=== PATIENT | male | born 1950 | race Caucasian/White ===

== ENCOUNTER → 2023-12-07 13:37 | Outpatient (REF) | payer OTHER, SELFPAY | LOC: RCS 13:37 | PROVIDERS: ATTENDING PHYSICIAN Internal Medicine Cardiovascular Disease; FAMILY PHYSICIAN Family Medicine | DX: I10 Essential (primary) hypertension (principal) | CPT/HCPCS: 93306 ==

== ENCOUNTER 2024-01-30 15:25 | Emergency (ER) | payer OTHER, SELFPAY ==
[2024-01-30 15:26] VITALS: BP 132/86
--- NOTE | 2024-01-30 15:46 | ED.GENMED ---
History of Present Illness
<Radha Yi PA-C - Last Filed: 01/30/24 18:20>
General
Chief Complaint: Skin Surface Trauma
Source: patient
Exam Limitations: none
Time Seen by Provider: 01/30/24 15:42
Nursing documentation reviewed up to this point in time: agreed with
History of Present Illness
History of Present Illness:
This is a 73 y/o male with a PMH of hyperlipidemia presenting to the emergency department today with concerns of a crush injury to the finger. Patient states that he was folding up a small stepstool ladder when he caught his finger in between the
folds. Patient reports that he had pain and noticed his fingernail hanging off. Patient denies any other injuries, patient denies any other falls. Patient denies any other problems and is fingers or hands. Patient has seen Dr. Avelar in the past
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 Patient does not take any blood thinners. Patient does have an allergy to penicillins in which she gets difficulty breathing. Patient is not up-to-date on his tetanus vaccine.
Past History
<Radha Yi PA-C - Last Filed: 01/30/24 18:20>
Past History
ED Past Medical History: Other (kidney stones)
ED Past Surgical History: Urological (lithotripsy)
Social History
Tobacco: Non-smoker
Alcohol: Occasional
Drug: None
Personal:
Living: with family
Employment: Employed
Review of Systems
<ABHIJEET Hwang Last Filed: 01/30/24 18:20>
Review of Systems
All Other Systems: ROS reviewed and negative except as documented in HPI and ROS
Phy Exam
<Radha Yi PA-C - Last Filed: 01/30/24 18:20>
Physical Exam
Physical Exam:
General: Patient is well appearing and in no acute distress; non-toxic
Skin: Warm and dry, there is a total avulsion of the left thumbnail with a jagged nail bed laceration, actively bleeding.
Head: Normocephalic, atraumatic
Eyes: Sclera non-icteric. EOMs intact.
Cardiac: Regular rate
Pulm: Normal respiratory effort
Musculoskeletal: Full range of motion bilateral upper extremities. 5/5 strength in bilateral upper extremities. Tenderness to palpation of the first left distal phalanx, no proximal bony tenderness.
Neuro: CN II-XII intact, no focal neurologic deficits.
Psychiatric: Appropriate mood and affect.
Course
<Radha Yi PA-C - Last Filed: 01/30/24 18:20>
Orders/Labs/Results
Orders:
Orders
01/30/24 16:28
Tetanus/Diphth/Acelpertussis [Adacel] 0.5 ml IM .ONCE ONE
01/30/24 16:34
CR Finger(s)/thumb Min 2 Vw Lt Urgent
Comment:
Reason For Exam: left thumb crush injury + pain
Vital Signs
Initial and Last Documented VS:
Initial Vital Signs
Temp Pulse Resp BP Pulse Ox
98.0 F 85 18 132/86 97
01/30/24 15:26 01/30/24 15:26 01/30/24 15:26 01/30/24 15:26 01/30/24 15:26
Last Documented Vital Signs
Temp Pulse Resp BP Pulse Ox
98.0 F 70 20 153/93 97
01/30/24 15:26 01/30/24 17:01 01/30/24 17:01 01/30/24 17:01 01/30/24 15:26
<Sergio Johnson MD - Last Filed: 01/30/24 16:44>
Orders/Labs/Results
Orders:
Orders
01/30/24 16:28
Tetanus/Diphth/Acelpertussis [Adacel] 0.5 ml IM .ONCE ONE
01/30/24 16:34
CR Finger(s)/thumb Min 2 Vw Lt Urgent
Comment:
Reason For Exam: left thumb crush injury + pain
Vital Signs
Initial and Last Documented VS:
Initial Vital Signs
Temp Pulse Resp BP Pulse Ox
98.0 F 85 18 132/86 97
01/30/24 15:26 01/30/24 15:26 01/30/24 15:26 01/30/24 15:26 01/30/24 15:26
Last Documented Vital Signs
Temp Pulse Resp BP Pulse Ox
98.0 F 70 20 153/93 97
01/30/24 15:26 01/30/24 17:01 01/30/24 17:01 01/30/24 17:01 01/30/24 15:26
Procedures
<Radha Yi PA-C - Last Filed: 01/30/24 18:20>
Laceration Closure
Left nail bed:
Status of Wound: clean
Size of Wound in cm: 1
Description of Wound Edges: ragged
Preparation: cleaned with saline
Anesthesia: 1% Lidocaine
Revision/Debridement: minor revision
Wound exploration: explored to base- no FB and no tendon involvement
Type of Closure: single layer closure
Skin Closure Material: 5-0 chromic gut
Number of sutures: 3
<Radha Yi PA-C - Last Filed: 01/30/24 18:20>
MDM/Problems Addressed
Differential Diagnosis Includes:
ddx include laceration, abrasion, avulsion, distal phalanx fracture
MDM/Problems Addressed:
Left thumb crush injury:
This is a 73 y/o male with a PMH of hyperlipidemia presenting to the emergency department today with concerns of a crush injury to the finger. Patient injured a total fingernail avulsion of the left thumb with a nailbed laceration. X-ray reveals
distal phalanx fracture. Patient is neurovascularly intact. Considering open fracture, will start patient on antibiotics. Patient has follow-up with Dr. Avelar in the past, will have him call tomorrow morning to schedule an appointment. Finger
splint placed. Patient stable for discharge.
Chronic conditions affecting care:
n/a
Acute Exacerbation and/or Progression of Chronic Illness:
n/a
<Radha Yi PA-C - Last Filed: 01/30/24 18:20>
*Pulse Oximetry
Patient hypoxic: no
*Critical Care Note
Total Time (30-74mins, 75-104mins- exclusive of procedures): Not Applicable
Data Reviewed
Review of Other/Old Records Reveals: Records (Reviewed ER physician documentation from 07/25/19) and Discharge Summary (No discharge summaries in [facility] to review)
Source: patient and records
Prescriptions/Medications Considered But Not Given:
Patient declining medication for pain at this time
<Radha Yi PA-C - Last Filed: 01/30/24 18:20>
Patient Management
Escalation/DeEscalation of care consider admission/obs:
Admit not indicated, patient stable for discharge
ED Attending Note
<Radha Yi PA-C - Last Filed: 01/30/24 18:20>
-
Portions of this chart may have been created with voice recognition software.� Occasional wrong word or��sound alike� substitutions may have occurred due to the inherent limitations of voice recognition software.
<Sergio Johnson MD - Last Filed: 01/30/24 16:44>
ED Attending Note
Patient seen and examined by attending physician: Yes
I performed the substantive portion of visit, reviewed & personally made and approve the management plan that is documented in note by myself or DINESH.: Yes
ED Attending Note:
Trauma to the left thumb from a ladder. Stuck between 2 pieces of metal. Last tetanus unknown.
Totally avulsed nail to the left thumb. Jagged nailbed laceration. Motor or sensory neurovascular intact.
Plan is irrigate suture the nailbed. Using the nail as a splint. X-ray tetanus.
Discharge Plan
Departure
Patient Disposition: Home (Routine Discharge)
Date of Disposition: 01/30/24
Time of Disposition: 17:59
Patient with high blood pressure during this ER visit?: Yes
Condition: Good
Discharge Problem:
Fracture of distal phalanx of finger, Nail avulsion, finger
Instructions: Hand fracture, Laceration Repair With Stitches (DC), Nail Avulsion, BLOOD PRESSURE
Prescriptions:
New
doxycycline hyclate 100 mg capsule
100 mg PO BID 7 Days Qty: 14 0RF
Referrals:
Viktoriya Stanley MD [Family Provider] -
Luis Eduardo Avelar MD [Active] - Call in 1-3 days for appt
Activity Restrictions/Additional Instructions:
Starting tomorrow, you can start taking doxycycline. You can take one tablet twice daily for [address] Avelar's office tomorrow morning to schedule an appointment.
Please return to the emergency department should you develop increasing pain, swelling, pallor in your thumb, loss of sensation, or any other concerning signs or symptoms.
Interventions
Interventions:
*Risk Screen - Suicide Last Done: 01/30/24 16:49
*General Assessment Last Done: 01/30/24 16:49
*Neglect/Abuse Screening Last Done: 01/30/24 16:49
*ED COVID-19 Vaccine History Last Done: 01/30/24 16:49
*Nursing Disposition Last Done: 01/30/24 18:16
ED-Skin Assessment Last Done: 01/30/24 15:40
Discharge Date and Time
Print Language: GUYANESE
[2024-01-30] MEDS: ADACEL 0.5 ML IM (16:55)
[2024-01-30 17:01] VITALS: BP 153/93
[2024-01-30 18:15] VITALS: BP 147/91
[2024-01-30 18:16] VITALS: BP 147/91
== END 2024-01-30 18:17 | disposition home or self-care (01) ==
LOC: EMR 15:25
PROVIDERS: EMERGENCY PHYSICIAN Emergency Medicine; FAMILY PHYSICIAN Family Medicine
DX: S61.309A Unspecified open wound of unspecified finger with damage to nail, initial encounter (principal); W23.0XXA Caught, crushed, jammed, or pinched between moving objects, initial encounter; Z23 Encounter for immunization; S67.02XA Crushing injury of left thumb, initial encounter; Z87.442 Personal history of urinary calculi
CPT/HCPCS: 99283; 12001; 90471; 73140; 90715

== ENCOUNTER → 2024-11-18 09:50 | Outpatient (REF) | payer OTHER, SELFPAY | LOC: HWRAD 09:50 | PROVIDERS: ATTENDING PHYSICIAN Surgery; FAMILY PHYSICIAN Family Medicine | DX: R10.11 Right upper quadrant pain (principal) | CPT/HCPCS: 76700 ==

== ENCOUNTER → 2024-12-10 12:51 | Outpatient (REF) | payer OTHER, SELFPAY | LOC: RCS 12:51 | PROVIDERS: ATTENDING PHYSICIAN Internal Medicine Cardiovascular Disease; FAMILY PHYSICIAN Family Medicine | DX: I77.810 Thoracic aortic ectasia (principal) | CPT/HCPCS: 93306 ==

== ENCOUNTER → 2025-01-21 10:48 | Outpatient (REF) | payer OTHER, SELFPAY | LOC: DHSLP 10:48 | PROVIDERS: ATTENDING PHYSICIAN Family Medicine | DX: G47.33 Obstructive sleep apnea (adult) (pediatric) (principal); R09.02 Hypoxemia | CPT/HCPCS: 95806 ==